=== PATIENT | male | born 1995 | race Caucasian/White ===

== ENCOUNTER 2022-03-25 14:28 | Emergency (ER) | payer MEDICAID ==
[~2022-03-25] VITALS: Ht 172.7 cm; Wt 69.0 kg
[2022-03-25] MEDS ORDERED: ALBUTEROL (0.083%) 2.5MG/3ML NEB HHN STA (15:57)
[2022-03-25 17:17] VITALS: BP 113/73
== END 2022-03-25 17:22 | disposition home or self-care (01) ==
LOC: ER 14:28
DX: J45.909 Unspecified asthma, uncomplicated (principal); R06.02 Shortness of breath; I10 Essential (primary) hypertension
CPT/HCPCS: 71045; 93005; 94640; 99283; Z7610

== ENCOUNTER 2022-04-14 12:22 | Emergency (ER) | payer MEDICAID ==
[~2022-04-14] VITALS: Ht 165.1 cm; Wt 45.0 kg
[2022-04-14 12:24] VITALS: BP 118/80
[2022-04-14] MEDS ORDERED: DEXAMETHASONE 4MG TABLET PO ONE (12:45)
[2022-04-14] MEDS ORDERED: ALBUTEROL (0.083%) 2.5MG/3ML NEB HHN ONE (12:45)
== END 2022-04-14 14:06 | disposition home or self-care (01) ==
LOC: ER 12:22
DX: J45.901 Unspecified asthma with (acute) exacerbation (principal); I10 Essential (primary) hypertension
CPT/HCPCS: 94640; 99283; J8540; Z7610